=== PATIENT | male | born 1995 | race Two or more races ===

== ENCOUNTER 2021-09-19 19:08 | Emergency (ER) | payer SELFPAY ==
[2021-09-19] MEDS ORDERED: Ibuprofen 600 MG Tab PO ONE (21:01)
--- NOTE | 2021-09-19 21:05 | EDM.PDOC ---
ED HPI GENERAL MEDICAL PROBLEM - General Chief Complaint: General Stated Complaint: HANDS TINGLING Time Seen by Provider: 09/19/21 20:56 - History of Present Illness INITIAL COMMENTS - FREE TEXT/NARRATIVE: HISTORY AND PHYSICAL: History of present illness: 26-year-old who presents ER today secondary to tingling to his right thumb index finger middle finger and ring finger. 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 Patient reports that the tingling is intermittent. Patient reports that today it got worse looking the ED. Patient denies any other trauma or injury to his hand. Review of systems: As per history of present illness and below otherwise all systems reviewed and negative. Past medical history: As per history of present illness and as reviewed below otherwise noncontri butory. Surgical history: As per history of present illness and as reviewed below otherwise noncontributory. Social history: No reported history of drug abuse. Family history: As per history of present illness and as reviewed below otherwise noncontributory. Physical exam: This patient was seen and evaluated during the 2019 SARS-CoV-2 novel coronavirus pandemic period. Community viral transmission is ongoing at time of this encounter and the emergency department is operating under pandemic response procedures. Constitutional: Patient is oriented to person, place, and time. Appears well- developed and well-nourished. No distress. HEENT: Moist mucous membranes Head: Normocephalic and atraumatic Eyes: Right eye exhibits no discharge. Left eye exhibits no discharge. No scleral icterus Neck: Normal range of motion. No tracheal deviation present. Cardiovascular: Normal rate and regular rhythm. Pulmonary: Effort normal, no respiratory distress. Abdominal: No distention Musculoskeletal: Normal range of motion Neurologic: Alert and oriented to person, place and time. Skin: Cole, warm and dry. Psychiatric: Normal mood and affect. Behavior is normal. Judgment and thought content normal. Nursing note and vital signs have been reviewed Patient is ER physical exam is significant for your capillary refill, fingers are warm to touch, pulses normal, sensation normal. Diagnostics: [] DME: With splint ordered secondary to likely carpal tunnel syndrome and need for immobilization of the wrist for healing of the inflammation within the tunnel. Therapeutics: [] Assessment and plan: 26-year-old with a presentation consistent with likely carpal tunnel syndrome. Patient will be discharged home with a wrist splint instructed to follow-up with . I have discussed with him maybe not working out quite as hard and he of his wrists arrest. He will be placed in a wrist splint while at rest or sleeping. Patient has been instructed take ibuprofen as needed as well. Reassessment at the time of disposition demonstrates that the patient is in no acute distress. The patient has remained stable throughout the entire ED visit and is without objective evidence for acute process requiring urgent intervention or hospitalization. The patient is stable for discharge, counseling is provided as documented above, discussed symptomatic treatment and specific conditions for return. I have spoken with the patient/caregiver and discussed todays findings, in addition to providing specific details for the plan of care. Questions are answered and there is agreement with the plan. Definitive disposition and diagnosis as appropriate pending reevaluation and review of above. - Related Data Allergies Allergy/AdvReac Type Severity Reaction Status Date / Time No Known Allergies Allergy Verified 09/19/21 20:47 Home Meds: Home Meds Ashwagandha Root Extract 1 cap PO DAILY 09/19/21 [History] Multivit-Minerals/FA/Lycopene [One Daily Tablet] 1 each PO DAILY 09/19/21 [History] [place]-3 Fatty Acids/Fish Oil [Fish Oil 1,000 mg Capsule] 1 each PO DAILY 09/19/21 [History] Past Medical History - Past Health History Medical/Surgical History: Denies Medical/Surgical History - Infectious Disease History Infectious Disease History: Reports: None Social & Family History - Caffeine Use Caffeine Use: Reports: Coffee, Energy Drinks, Other Other Caffeine Use: preworkout - Recreational Drug Use Recreational Drug Use: No ED ROS GENERAL - Review of Systems Review Of Systems: See Below ED EXAM, GENERAL - Physical Exam Exam: See Below Course - Vital Signs Last Recorded V/S: Last Vital Signs Temp 97.0 F 09/19/21 20:49 Pulse 89 09/19/21 20:49 Resp 18 09/19/21 20:49 BP 133/83 09/19/21 20:49 Pulse Ox 99 09/19/21 20:49 - Orders/Labs/Meds Orders: Active Orders 24 hr Category Date Time Status Ibuprofen [Motrin] Med 09/19/21 21:01 Once 600 mg PO ONETIME ONE DME for Discharge [COMM] Stat Oth 09/19/21 21:00 Ordered Medication Orders Ibuprofen (Ibuprofen 600 Mg Tab) 600 mg PO ONETIME ONE Stop: 09/19/21 21:02 Meds: Medications Generic Name Dose Route Start Last Admin Trade Name Shelia PRN Reason Stop Dose Admin Ibuprofen 600 mg 09/19/21 21:01 Ibuprofen 600 Mg Tab PO 09/19/21 21:02 ONETIME ONE Departure - Departure Time of Disposition: 21:03 Disposition: Home, Self-Care 01 Condition: Good Clinical Impression: Carpal tunnel syndrome of right wrist - Discharge Information Instructions: Carpal Tunnel Syndrome, [id number] Additional Instructions: You were seen and evaluated in ER today secondary to numbness and tingling to your fingers in your right hand. Is most likely secondary to carpal tunnel syndrome. Please use the splint provided to help with decreasing the inflammation within your carpal tunnel. Please make an appointment to follow-up with your doctor in the next 1 to 2 weeks. You should apply ice to your wrist to help decrease amount of inflammation in the area. You can take ibuprofen as needed for pain or discomfort. The following information is given to patients seen in the emergency department who are being discharged to home. This information is to outline your options for follow-up care. We provide all patients seen in our emergency department with a follow-up referral. The need for follow-up, as well as the timing and circumstances, are variable depending upon the specifics of your emergency department visit. If you don't have a primary care physician on staff, we will provide you with a referral. We always advise you to contact your personal physician following an emergency department visit to inform them of the circumstance of the visit and for follow-up with them and/or the need for any referrals to a consulting specialist. The emergency department will also refer you to a specialist when appropriate. This referral assures that you have the opportunity for follow-up care with a specialist. All of these measure are taken in an effort to provide you with optimal care, which includes your follow-up. Under all circumstances we always encourage you to contact your private physician who remains a resource for coordinating your care. When calling for follow-up care, please make the office aware that this follow-up is from your recent emergency room visit. If for any reason you are refused follow-up, please contact the [facility] Emergency Department at and asked to speak to the emergency department charge nurse. [facility] - Primary Care [address] [place] [address] [facility] [address] [place] [address] Sepsis Event Note (ED) - Evaluation Sepsis Screening Result: No Definite Risk - Focused Exam Vital Signs: Vital Signs Temp Pulse Resp BP Pulse Ox 09/19/21 20:49 97.0 F 89 18 133/83 99 - My Orders Last 24 Hours: My Active Orders 09/19/21 21:00 DME for Discharge [COMM] Stat 09/19/21 21:01 Ibuprofen [Motrin] 600 mg PO ONETIME ONE - Assessment/Plan Last 24 Hours: My Active Orders 09/19/21 21:00 DME for Discharge [COMM] Stat 09/19/21 21:01 Ibuprofen [Motrin] 600 mg PO ONETIME ONE
== END 2021-09-19 21:26 | disposition home or self-care (01) ==
LOC: MW.ED 19:08
DX: G56.01 Carpal tunnel syndrome, right upper limb (principal)
CPT/HCPCS: 99283; A9270

== ENCOUNTER 2025-07-20 14:28 | Observation (INO) | payer SELFPAY ==
[2025-07-20 15:14] LABS: BASOPHILS ABSOLUTE AUTO 0.05 K/uL (0.00-0.20); BASOPHILS PERCENT AUTO 0.6 % (0.0-1.0); EOSINOPHILS ABSOLUTE AUTO 0.13 K/uL (0.00-0.45); EOSINOPHILS PERCENT AUTO 1.6 % (0.0-6.0); IMMATURE GRAN ABSOLUTE AUTO 0.02 K/uL (0.00-0.05); IMMATURE GRAN PERCENT AUTO 0.2 % (0.0-0.4); LYMPHOCYTES ABSOLUTE AUTO 2.60 K/uL (1.00-4.80); LYMPHOCYTES PERCENT AUTO 31.7 % (24.0-44.0); MEAN PLATELET VOLUME 8.9 fL (9.4-12.4); MONOCYTES ABSOLUTE AUTO 0.52 K/uL (0.00-0.80); MONOCYTES PERCENT AUTO 6.3 % (0.0-8.0); NEUTROPHILS ABSOLUTE AUTO 4.88 K/uL (1.80-7.70); NEUTROPHILS PERCENT AUTO 59.6 % (41.0-71.0); NRBC ABSOLUTE 0.00 K/uL (0.00-0.02); NRBC PERCENT 0.0 /100WBC (0.0-0.2); PLATELET COUNT,PLT 255 K/uL (150-400); RED BLOOD CELL COUNT 6.14 M/uL (4.52-5.90); WHITE BLOOD CELL COUNT,WBC 8.20 K/uL (3.9-11.3)
[2025-07-20 15:25] LABS: INR 1.08 (0.86-1.11); PTT,PARTIAL THROMBOPLSTIN TIME 26.4 SEC (23.9-30.7)
[2025-07-20] MEDS: Iopamidol 755 MG/ML 500 ML Multipack Bottle IVPUSH STA (15:26)
[2025-07-20 15:35] LABS: A/G RATIO 1.3 (0.9-1.6); ALANINE AMINOTRANSFERASE,ALT 66.0 IU/L (14-63); ASPARTATE AMNIOTRANSFERASE,AST 30.0 IU/L (15-37); BILIRUBIN TOTAL 0.5 mg/dL (0.2-1.0); BLOOD UREA NITROGEN,BUN 12.0 mg/dL (7.0-18.0); CARBON DIOXIDE,CO2 27.8 mmol/L (21.0-32.0); CHLORIDE,CL 103.0 mmol/L (98-107); CREATININE 1.0 mg/dL (0.8-1.3); EST CRCL DRUG DOSING (CG) 97.47 mL/min; GLUCOSE RANDOM 93.0 mg/dL (74-106); POTASSIUM,K 3.7 mmol/L (3.5-5.1); PROTEIN TOTAL,TP 8.2 g/dL (6.4-8.2); SODIUM,NA 139.0 mmol/L (136-148)
[2025-07-20 15:40] LABS: ESTIMATED GFR 104.0 mL/min (>60)
[2025-07-20 16:01] LABS: APPEARANCE,URINE CLEAR; GLUCOSE,URINE NEGATIVE (NEGATIVE); OCCULT BLOOD,URINE NEGATIVE (NEGATIVE)
[2025-07-20] MEDS ORDERED: Sodium Chloride 0.9% 2.5 ML Syringe FLUSH PRN (18:43)
[2025-07-20] MEDS ORDERED: Ondansetron 4 MG/2 ML SDV IVPUSH PRN (18:43)
[2025-07-20] MEDS ORDERED: Sodium Chloride 0.9% 10 ML Syringe FLUSH PRN (18:43)
[2025-07-21 06:09] LABS: MEAN PLATELET VOLUME 9.0 fL (9.4-12.4); NRBC ABSOLUTE 0.00 K/uL (0.00-0.02); NRBC PERCENT 0.0 /100WBC (0.0-0.2); PLATELET COUNT,PLT 273 K/uL (150-400); RED BLOOD CELL COUNT 6.36 M/uL (4.52-5.90); WHITE BLOOD CELL COUNT,WBC 4.79 K/uL (3.9-11.3)
[2025-07-21 06:30] LABS: BLOOD UREA NITROGEN,BUN 15.0 mg/dL (7.0-18.0); CARBON DIOXIDE,CO2 27.4 mmol/L (21.0-32.0); CHLORIDE,CL 104.0 mmol/L (98-107); CREATININE 0.9 mg/dL (0.8-1.3); EST CRCL DRUG DOSING (CG) 108.3 mL/min; GLUCOSE RANDOM 137.0 mg/dL (74-106); POTASSIUM,K 4.9 mmol/L (3.5-5.1); SODIUM,NA 139.0 mmol/L (136-148)
[2025-07-21 06:32] LABS: ESTIMATED GFR 118.0 mL/min (>60)
[2025-07-21 06:51] LABS: BAND ABSOLUTE MAN 0.10; BAND PERCENT MAN 2 %; SEG NEUTROPHILS ABSOLUTE MAN 3.54 K/uL (1.80-7.70); SEG NEUTROPHILS PERCENT MAN 74 % (41-71)
[2025-07-21 06:52] LABS: LYMPHOCYTES ABSOLUTE MAN 0.96 K/uL (1.00-4.80); LYMPHOCYTES PERCENT MAN 20 % (24-44); MONOCYTES ABSOLUTE MAN 0.19 K/uL (0.00-0.80); MONOCYTES PERCENT MAN 4 % (0-8)
[2025-07-21] MEDS: Gadoteridol 279.3 MG/ML 20 ML SDV IVPUSH ONE (13:51)
[2025-07-23 13:07] LABS: %FREE TESTOSTERONE 1.7 % (1.6-2.9); SEX HORM BND GLOB 39.0 nmol/L (17-56); TESTO, ADULT MALE 393.0 ng/dL (300-1080); TESTOSTERONE FREE 66.0 pg/mL (47-244)
== END 2025-07-21 17:30 | disposition home or self-care (01) ==
LOC: MW.ED 14:28 → MW.MS 17:57
PROVIDERS: ADMIT Family Medicine; ATTEND Family Medicine
DX: R29.818 Other symptoms and signs involving the nervous system (principal); R29.810 Facial weakness; R20.0 Anesthesia of skin; Z87.891 Personal history of nicotine dependence
CPT/HCPCS: 36415; 70450; 70496; 70498; 70553; 71045; 80048; 80053; 81003; 84270; 84402; 84403; 85025; 85610; 85730; 93005; 99285; A9270; A9579; Q9967; 93010; G0378